=== PATIENT | male | born 1960 ===

== ENCOUNTER 2016-10-04 06:31 | Day surgery (SDC) | payer OTHER ==
[~2016-10-04 06:31] MED LIST: MULTIPLE VITAMIN PO; VITAMIN D-31000 UNIT PO
--- NOTE | 2016-10-04 09:09 | Provider's Discharge Care Plan ---
Problem, Goal, Plan Problem List 1. Colon polyp
--- NOTE | 2016-10-04 09:09 | Provider's Discharge Care Plan ---
Problem, Goal, Plan Problem List 1. Colon polyp
--- NOTE | 2016-10-04 10:13 | OPERATIVE REPORT ---
DATE OF SURGERY: 10/04/2016 SURGEON: Ziggy Zayas MD PREOPERATIVE DIAGNOSIS: 1. History of colon polyps POSTOPERATIVE DIAGNOSIS: 1. Colon polyp PROCEDURE PERFORMED: 1. Colonoscopy with snare polypectomy ANESTHESIA: Total IV general. INDICATIONS: The patient is a 56-year-old man with a previous tubular adenoma in 2010. SURGICAL TECHNIQUE: The patient was taken to the endoscopy suite, where total IV general was administered and the patient was placed in the left lateral decubitus position. A well-lubricated colonoscope was advanced the length colon under direct vision. During insertion, a sessile polyp about 4 mm in diameter was noted at 30 cm. This was removed using the cautery snare. It was encircled at its base and elevated and detached utilizing the cauterizing current. It was retrieved through the suction channel. The rest of the colon was examined, starting with the ileocecal valve and there were no additional polyps or tumors seen, including a retroflexed view of the rectum. The patient left in good condition and no intraoperative complications were encountered.
== END 2016-10-04 10:22 | disposition home or self-care (01) ==
LOC: OR SRH 06:31 → SCU SRH 06:32 → OR SRH 08:30
PROVIDERS: Surgery
PROC: 0DBN8ZX Excision of Sigmoid Colon, Via Natural or Artificial Opening Endoscopic, Diagnostic (ICD-10-PCS; principal; 2016-10-04 08:30)
DX: Z86.010 Personal history of colon polyps (principal); D12.5 Benign neoplasm of sigmoid colon; Z80.0 Family history of malignant neoplasm of digestive organs
CPT/HCPCS: 29229; 29240; 50004; 60001; 82900; 83526